=== PATIENT | female | born 1980 | race Caucasian/White ===

== ENCOUNTER 2018-11-04 07:30 | Inpatient (IN) | payer OTHER ==
[~2018-11-04] VITALS: Ht 154.9 cm; Wt 61.2 kg
== END 2018-11-12 13:31 | DRG 743 ==
LOC: SURH 11-09 07:30 → O/R 11-09 08:50 → OB/GYN 11-09 08:50
PROVIDERS: Urology; ADMIT Obstetrics & Gynecology
PROC: 0T788DZ Dilation of Bilateral Ureters with Intraluminal Device, Via Natural or Artificial Opening Endoscopic (ICD-10-PCS; 2018-11-09)
PROC: 0UT70ZZ Resection of Bilateral Fallopian Tubes, Open Approach (ICD-10-PCS; principal; 2018-11-09 09:00)
PROC: 0UT20ZZ Resection of Bilateral Ovaries, Open Approach (ICD-10-PCS; 2018-11-09 09:00)
DX: N80.1 Endometriosis of ovary (principal); N73.6 Female pelvic peritoneal adhesions (postinfective); N28.89 Other specified disorders of kidney and ureter